=== PATIENT | female | born 1980 | race Two or more races ===

== ENCOUNTER 2018-02-25 10:10 | Outpatient (CLI) | payer OTHER | END 2018-02-25 14:08 | disposition home or self-care (01) | LOC: LAB 10:10 | DX: E03.8 Other specified hypothyroidism (principal); N95.1 Menopausal and female climacteric states ==

== ENCOUNTER 2018-02-25 10:50 | Outpatient (CLI) | payer OTHER | END 2018-02-25 11:28 | disposition home or self-care (01) | LOC: SONOGRAMA 10:50 | DX: N60.11 Diffuse cystic mastopathy of right breast (principal); N60.12 Diffuse cystic mastopathy of left breast; Z12.31 Encounter for screening mammogram for malignant neoplasm of breast; N61.0 Mastitis without abscess ==

== ENCOUNTER 2018-08-10 09:46 | Emergency (ER) | payer OTHER ==
[~2018-08-10] VITALS: Ht 165.1 cm; Wt 59.0 kg
[2018-08-10] MEDS ORDERED: SYNTHROID75 MCG ×2 (10:10→10:11)
== END 2018-08-10 14:09 | disposition home or self-care (01) ==
LOC: ER 09:46 → EMR PED 09:57 → ER 14:09
DX: N39.0 Urinary tract infection, site not specified (principal)

== ENCOUNTER 2020-02-15 14:07 | Emergency (ER) | payer OTHER ==
[~2020-02-15] VITALS: Ht 165.1 cm; Wt 66.7 kg
[~2020-02-15 14:07] MED LIST: SYNTHROID75 MCG
[2020-02-15] MEDS ORDERED: DICLOFENAC SODI75 MG PO (14:40)
[2020-02-15] MEDS ORDERED: NORFLEX100MG PO (14:40)
== END 2020-02-15 14:43 | disposition home or self-care (01) ==
LOC: ER 14:07
DX: M54.5 Low back pain (principal)